=== PATIENT | female | born 1980 | race Caucasian/White ===

== ENCOUNTER 2022-04-20 06:31 | Inpatient (IN) ==
[2022-04-20] MEDS ORDERED: D5 1/2 NS 1,000 ML 1,000 ML IV SCH (06:33)
[2022-04-20] MEDS ORDERED: ANCEF VIAL 1 GRAM IVP ONE (06:33)
[2022-04-20] MEDS ORDERED: NS 100 ML IV 100 ML ONE (06:41)
[2022-04-20] MEDS ORDERED: LR 1,000 ML IV 1,000 ML IV ONE ×2 (06:42→08:33)
[2022-04-20] MEDS ORDERED: BETADINE SOLN ONE (06:52)
[2022-04-20] MEDS ORDERED: PEPCID 20 MG VIAL ONE (07:00)
[2022-04-20] MEDS ORDERED: ZEMURON 100 MG VIAL ONE (07:00)
[2022-04-20] MEDS ORDERED: ZOFRAN INJ 4 MG VIAL ONE (07:00)
[2022-04-20] MEDS ORDERED: PRECEDEX INJ VIAL IVP ONE (07:00)
[2022-04-20] MEDS ORDERED: MARCAINE SPINAL ONE (07:00)
[2022-04-20] MEDS ORDERED: ROBINUL ONE (07:00)
[2022-04-20] MEDS ORDERED: DIPRIVAN VIAL 20 ML ONE (07:00)
[2022-04-20] MEDS ORDERED: DECADRON INJ ONE (07:00)
[2022-04-20] MEDS ORDERED: TORADOL 30 MG VIAL ONE (07:00)
[2022-04-20 07:01] VITALS: BMI 29.0
[2022-04-20] MEDS ORDERED: FENTANYL VIAL INJ 100 mcg ONE (07:01)
[2022-04-20] MEDS ORDERED: XYLOCAINE 2 % (PLAIN) ONE ×2 (07:01→07:50)
[2022-04-20] MEDS ORDERED: BRIDION ONE (07:01)
[2022-04-20] MEDS ORDERED: DILAUDID INJ ONE (07:01)
[2022-04-20] MEDS ORDERED: VERSED ONE (07:01)
[2022-04-20] MEDS ORDERED: KETAMINE 50 MG/5 ML-NACL SYRNG ONE (07:03)
[2022-04-20] MEDS ORDERED: BARHEMSYS INJ ONE (07:10)
[2022-04-20] MEDS ORDERED: ULTANE GAS IN ONE (07:24)
[2022-04-20] MEDS ORDERED: LACRI-LUBE S.O.P. ONE (07:50)
[2022-04-20] MEDS ORDERED: OFIRMEV IV 1000 MG VIAL 1,000 MG/100 ML VIAL IV ONE (07:50)
[2022-04-20] MEDS ORDERED: D5 1/2 NS 1,000 ML 1,000 ML IV ONE (08:04)
[2022-04-20] MEDS ORDERED: NORMODYNE INJ 20 MG VIAL ONE (08:14)
[2022-04-20] MEDS ORDERED: BARHEMSYS INJ IVP PRN (09:58)
[2022-04-20] MEDS ORDERED: DILAUDID INJ IVP PRN (09:58)
[2022-04-20] MEDS ORDERED: BENADRYL INJ 50 MG VIAL IVP PRN ×2 (09:58→10:17)
[2022-04-20] MEDS ORDERED: ZOFRAN INJ 4 MG VIAL IVP PRN (10:17)
[2022-04-20] MEDS: D5 1/2 NS 1,000 ML 1,000 ML IV SCH ×3 (10:39→18:11)
[2022-04-20] MEDS: TORADOL 30 MG VIAL IVP PRN ×2 (17:10→22:59)
[2022-04-20] MEDS: PERCOCET TAB 5/325 MG PO PRN (19:03)
[2022-04-20] MEDS: LOPRESSOR TAB 25 MG PO SCH (20:45)
[2022-04-21] MEDS: D5 1/2 NS 1,000 ML 1,000 ML IV SCH ×5 (00:52→18:29)
[2022-04-21 05:13] LABS: BASOPHILS % (AUTO) 0.2 % (0.2-1.0); HEMATOCRIT 30.6 % (36.0-47.0); HEMOGLOBIN 10.7 g/dL (12.0-16.0); LYMPHOCYTES # (AUTO) 1.4 X10^3/uL (1.3-2.9); LYMPHOCYTES % (AUTO) 13.7 % (21.0-51.0); MEAN CORPUSCULAR HEMOGLOBIN 28.1 pg (27.0-34.0); MEAN CORPUSCULAR HGB CONC 34.9 g/dL (33.0-35.0); MEAN CORPUSCULAR VOLUME 80.7 fL (80.0-100.0); MEAN PLATELET VOLUME 9.3 fL (7.4-11.0); MONOCYTES # (AUTO) 0.7 x10^3/uL (0.3-0.8); MONOCYTES % (AUTO) 6.2 % (0.0-13.0); NEUTROPHILS # (AUTO) 8.4 x10^3/uL (2.2-4.8); NEUTROPHILS % (AUTO) 79.9 % (42.0-75.0); RED BLOOD COUNT 3.79 X10^6/uL (3.5-5.4); RED CELL DISTRIBUTION WIDTH 14.8 % (11.6-16.5); WHITE BLOOD COUNT 10.5 X10^3/uL (3.6-10.0)
[2022-04-21 05:20] LABS: BLOOD UREA NITROGEN 7 mg/dL (7-18); CALCIUM 8.4 mg/dL (8.5-10.1); CARBON DIOXIDE 25.4 mmol/L (21-32); CHLORIDE 106 mmol/L (98-107); COR NA(FOR HYPERGLY) 142 mmol/L (136-145); CREATININE 0.73 mg/dL (0.55-1.02); SODIUM 141 mmol/L (136-145); eGFR NON BLACK RACES > 60 (>60)
[2022-04-21] MEDS: PERCOCET TAB 5/325 MG PO PRN ×4 (05:28→21:35)
[2022-04-21] MEDS: TORADOL 30 MG VIAL IVP PRN (07:28)
[2022-04-21] MEDS: EFFEXOR XR 150 MG CAP 24-HR PO SCH (08:57)
[2022-04-21] MEDS: PROTONIX TAB 40 MG PO SCH (08:57)
[2022-04-21] MEDS: LOPRESSOR TAB 25 MG PO SCH ×2 (08:57→21:35)
[2022-04-21] MEDS: COLACE CAP 100 MG PO SCH ×2 (08:57→21:34)
[2022-04-21] MEDS: MOTRIN TAB 800 MG PO PRN (14:55)
[2022-04-21] MEDS: BACTROBAN TOPICAL OINT TOP SCH ×2 (14:55→21:34)
[2022-04-22] MEDS: MOTRIN TAB 800 MG PO PRN ×2 (01:15→08:13)
[2022-04-22] MEDS: D5 1/2 NS 1,000 ML 1,000 ML IV SCH (01:16)
[2022-04-22] MEDS: PERCOCET TAB 5/325 MG PO PRN (06:25)
[2022-04-22] MEDS: BACTROBAN TOPICAL OINT TOP SCH (06:26)
[2022-04-22] MEDS ORDERED: PATIENT'S HOME MEDICATION PO SCH (06:30)
[2022-04-22] MEDS: LOPRESSOR TAB 25 MG PO SCH (08:08)
[2022-04-22] MEDS: COLACE CAP 100 MG PO SCH (08:08)
[2022-04-22] MEDS: PROTONIX TAB 40 MG PO SCH (08:09)
[2022-04-22] MEDS: EFFEXOR XR 150 MG CAP 24-HR PO SCH (08:13)
[2022-04-22 08:21] VITALS: BP 141/76
== END 2022-04-22 10:00 | disposition home or self-care (01) | DRG 743 ==
LOC: MED/SURG 06:31
PROVIDERS: ADMIT Specialist; ATTEND Specialist
DX: D50.8 Other iron deficiency anemias; R10.84 Generalized abdominal pain; N94.4 Primary dysmenorrhea; R10.2 Pelvic and perineal pain; D25.2 Subserosal leiomyoma of uterus